=== PATIENT | female | born 1975 | race Caucasian/White ===

== ENCOUNTER 2023-03-10 07:49 | Day surgery (SDC) | payer OTHER ==
[~2023-03-10] VITALS: Ht 157.5 cm; Wt 65.8 kg
[~2023-03-10 07:49] MED LIST: CEFAZOLIN SOD 1 GM in D5W 50 ML IV ONE; CEFAZOLIN SOD 1 GM/ ISO 50 ML PREMIX IV SCH
[2023-03-10] MEDS ORDERED: SIMETHICONE 40 MG/0.6 ML ML ONE (07:53)
[2023-03-10 08:22] LABS: HCG,QUAL RESULT NEGATIVE (NEGATIVE)
[2023-03-10] MEDS ORDERED: MEPERIDINE 100 MG INJ. 100 MG/ML VIAL ONE (08:47)
[2023-03-10] MEDS ORDERED: MIDAZOLAM HCL 5 MG/5 ML VIAL ONE ×2 (08:47→08:48)
[2023-03-10] MEDS ORDERED: GLYCOPYRROLATE 0.2 MG/ML VIAL ONE (08:49)
[2023-03-10 13:25] VITALS: BP_SYST 145
== END 2023-03-10 11:00 | disposition home or self-care (01) ==
LOC: SDS 07:49
PROVIDERS: ATTEND Colon & Rectal Surgery
DX: Z12.11 Encounter for screening for malignant neoplasm of colon (principal); K57.30 Diverticulosis of large intestine without perforation or abscess without bleeding; K64.9 Unspecified hemorrhoids
CPT/HCPCS: 45378; 84703; 99152; 99153; G0378; J2250; J2175; J0690; J3490; J7060